=== PATIENT | female | born 1995 | race Two or more races ===

== ENCOUNTER 2022-06-20 14:05 | Emergency (ER) | payer BC ==
[2022-06-20] MEDS ORDERED: ONDANSETRON 4 MG/2 ML VIAL IVP STA (15:14)
[2022-06-20] MEDS ORDERED: SODIUM CHLORIDE 0.9% 1,000 ML IV STA (15:14)
[2022-06-20] MEDS ORDERED: PANTOPRAZOLE 40 MG/10 ML VIAL IVP STA (15:14)
[2022-06-20] MEDS ORDERED: MORPHINE SULFATE 4 MG/ML SYRINGE IV STA (15:14)
[2022-06-20 15:52] LABS: Basophils # (A) 0.1 k/uL (0-0.2); Basophils % (A) 1 %; Eosinophils # (A) 0.3 k/uL (0-0.7); Eosinophils % (A) 4 %; HGB 15.3 gm/dL (11.4-16.0); Lymphocytes # (A) 2.6 k/uL (1.0-4.8); Lymphocytes % (A) 27 %; MCH 33.9 pg (25.0-35.0); MCV 99.8 fL (80.0-100.0); Mean Platelet Volume 8.7; Monocytes # (A) 0.3 k/uL (0-1.0); Monocytes % (A) 3 %; Neutrophils # (A) 6.2 k/uL (1.3-7.7); Neutrophils % (A) 65 %; Platelet Count 281 k/uL (150-450); RBC 4.51 m/uL (3.80-5.40); RDW 11.7 % (11.5-15.5); WBC 9.6 k/uL (3.8-10.6)
[2022-06-20 16:03] LABS: ALT 15 U/L (4-34); AST 26 U/L (14-36); African American GFR (CKD) >90 (>60 ml/min/1.73 sqM); Albumin 4.5 g/dL (3.5-5.0); Alkaline Phosphatase 74 U/L (38-126); Amylase 52 U/L (30-110); Anion Gap 6 mmol/L; Blood Urea Nitrogen 12 mg/dL (7-17); Calcium 9.3 mg/dL (8.4-10.2); Carbon Dioxide 23 mmol/L (22-30); Chloride 108 mmol/L (98-107); Glucose 78 mg/dL (74-99); Lipase 32 U/L (23-300); Non-African American GFR(CKD) >90 (>60 ml/min/1.73 sqM); Potassium 4.4 mmol/L (3.5-5.1); Sodium 137 mmol/L (137-145); Total Bilirubin 1.4 mg/dL (0.2-1.3); Total Protein 7.4 g/dL (6.3-8.2)
--- NOTE | 2022-06-20 16:03 | ED ---
General Adult HPI - General Chief complaint: Abdominal Pain Stated complaint: ABD Pain Time Seen by Provider: 06/20/22 15:10 Source: patient, RN notes reviewed, old records reviewed Mode of arrival: ambulatory Limitations: no limitations - History of Present Illness Initial comments: Patient is a 27-year-old female with no smoking past medical history presents emergency department complaining of vomiting since yesterday as well as acute on chronic right-sided abdominal pain. Patient states she has had multiple episodes of nonbilious nonbloody emesis yesterday and this morning may become bilious. No diarrhea. No constipation. No hematemesis. No chest pain or shortness of breath. Does endorse some chronic right upper flank pain, which she attributes to a possible mass located over the right side of her abdominal wall. This is been there for quite some time and intermittently is painful. This is more painful when she has episodes of emesis. Denies any vaginal discharge, bleeding, . Denies dysuria, hematuria. Denies diarrhea. Denies fevers or sick contacts. His no other acute complaints at this time. Is uncertain was causing her abdominal pain, nausea, vomiting. Presents for further evaluation at this time. - Related Data Previous Rx's Medication Instructions Recorded Famotidine 20 mg PO DAILY 7 Days #7 tab 06/20/22 Mag Hydrox/Al Hydrox/Simeth 30 ml PO BID PRN #500 ml 06/20/22 [Maalox] Ondansetron Odt [Zofran Odt] 4 mg PO Q8HR PRN 2 Days #6 tab 06/20/22 Allergies Allergy/AdvReac Type Severity Reaction Status Date / Time No Known Allergies Allergy Verified 06/20/22 17:33 Review of Systems ROS Statement: Those systems with pertinent positive or pertinent negative responses have been documented in the HPI. Review of Systems: CONST: Denies fever EYES: Denies blurry vision ENT: Denies nasal congestion C/V: Denies Chest pain RESP: Denies shortness of breath GI: Endorses abdominal pain, nausea : Denies dysuria SKIN: Denies rash. MSK: Denies joint pain. NEURO: Denies headache ROS Other: All systems not noted in ROS Statement are negative. Past Medical History Past Medical History: No Reported History History of Any Multi-Drug Resistant Organisms: None Reported Past Surgical History: No Surgical Hx Reported Past Psychological History: No Psychological Hx Reported Smoking Status: Current every day smoker Past Alcohol Use History: None Reported Past Drug Use History: Marijuana General Exam - General Exam Comments Initial Comments: General: Appears in no acute distress. HEAD: Normal with no signs of head trauma. EYES: PERRLA, EOMI, conjunctiva normal, no discharge. ENT: Hearing grossly intact, normal oropharynx. RESPIRATORY: Clear breath sounds bilaterally. No wheezes, rales, or rhonchi. C/V: Regular rate and rhythm. S1 and S2 auscultated, no edema, peripheral pulses 2+ and intact throughout ABD: Abdomen is soft, nondistended. Mild tenderness to palpation over the right upper flank at the site of the "mass". Does feel like a possible fatty tissue build up. Appears to be in the abdominal/chest wall. No guarding. No peritoneal signs. No rebound tenderness. EXT: Normal range of motion, no obvious deformity SKIN: No rashes or lesions observed on exposed skin. NEURO: Alert and oriented 4. Limitations: no limitations Course Vital Signs 06/20/22 06/20/22 06/20/22 14:11 17:50 18:14 Temperature 98.7 F 97.9 F Pulse Rate 74 64 64 Respiratory 15 18 18 Rate Blood Pressure 95/58 102/69 106/72 O2 Sat by Pulse 96 99 99 Oximetry Medical Decision Making - Medical Decision Making Based on the patient's presentation and physical exam, I'm concerned for possible internal pathology for current symptoms. Did recommend to obtain abdominal laboratory studies, urine studies as well as abdominal x-ray as well as an ultrasound of the renals and bladder as well as the abdominal/chest wall to evaluate this "mass." Patient was in agreement with this plan. She'll be symptomatically treated with IV medications and fluids. Patient's laboratory studies are remarkable for cloudy urine but no signs of acute infection. Covid is negative. Lactic acid is within normal limits. is negative. Remainder the labs are unremarkable. Abdominal x-ray shows no acute intra-abdominal process. Renal ultrasound shows no signs of hydronephrosis. No evidence of obstructive uropathy. Abdominal ultrasound of the patient's [facility] shows a lipoma located over the right sided upper abdominal wall. I discussed results of the patient. 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 Rest of her workup is unremarkable. She is feeling improved. I did discuss with her negative workup and I believe it is safer to be discharged, this time as she is feeling improved. I will provide her with home medications to help with nausea and vomiting. She was in agreement this plan. Strict return precautions were discussed. I will provide the patient with a prescription for Zofran, famotidine, Maalox. I instructed the patient to follow up with their PCP in the next 1-3 days. I explained that the patient should return to the emergency department if they experience any worsening symptoms. Strict return precautions were discussed with the patient. The patient expressed understanding of these instructions. I answe red all questions that the patient had. The patient was discharged home in good condition with their prescriptions and follow up information. - Lab Data Result diagrams: 06/20/22 15:29 06/20/22 15:29 Lab Results 06/20/22 06/20/22 06/20/22 Range/Units 15:29 15:29 15:29 WBC 9.6 (3.8-10.6) k/uL RBC 4.51 (3.80-5.40) m/uL Hgb 15.3 (11.4-16.0) gm/dL Hct 45.0 (34.0-46.0) % MCV 99.8 (80.0-100.0) fL MCH 33.9 (25.0-35.0) pg MCHC 34.0 (31.0-37.0) g/dL RDW 11.7 (11.5-15.5) % Plt Count 281 (150-450) k/uL MPV 8.7 Neutrophils % 65 % Lymphocytes % 27 % Monocytes % 3 % Eosinophils % 4 % Basophils % 1 % Neutrophils # 6.2 (1.3-7.7) k/uL Lymphocytes # 2.6 (1.0-4.8) k/uL Monocytes # 0.3 (0-1.0) k/uL Eosinophils # 0.3 (0-0.7) k/uL Basophils # 0.1 (0-0.2) k/uL PT (9.0-12.0) sec INR (<1.2) APTT (22.0-30.0) sec Sodium 137 (137-145) mmol/L Potassium 4.4 (3.5-5.1) mmol/L Chloride 108 H (98-107) mmol/L Carbon Dioxide 23 (22-30) mmol/L Anion Gap 6 mmol/L BUN 12 (7-17) mg/dL Creatinine 0.68 (0.52-1.04) mg/dL Est GFR (CKD-EPI)AfAm >90 (>60 ml/min/1.73 sqM) Est GFR (CKD-EPI)NonAf >90 (>60 ml/min/1.73 sqM) Glucose 78 (74-99) mg/dL Plasma Lactic Acid Mynor (0.7-2.0) mmol/L Calcium 9.3 (8.4-10.2) mg/dL Total Bilirubin 1.4 H (0.2-1.3) mg/dL AST 26 (14-36) U/L ALT 15 (4-34) U/L Alkaline Phosphatase 74 (38-126) U/L Total Protein 7.4 (6.3-8.2) g/dL Albumin 4.5 (3.5-5.0) g/dL Amylase 52 (30-110) U/L Lipase 32 (23-300) U/L HCG, Qual Not Detected Urine Color Yellow Urine Appearance Cloudy H (Clear) Urine pH 8.0 (5.0-8.0) Ur Specific [place] 1.025 (1.001-1.035) Urine Protein Trace H (Negative) Urine Glucose (UA) Negative (Negative) Urine Ketones 1+ H (Negative) Urine Blood Negative (Negative) Urine Nitrite Negative (Negative) Urine Bilirubin Negative (Negative) Urine Urobilinogen 3.0 (<2.0) mg/dL Ur Leukocyte Esterase Negative (Negative) Urine RBC 1 (0-5) /hpf Urine WBC <1 (0-5) /hpf Ur Squamous Epith Cells 4 (0-4) /hpf Amorphous Sediment Rare H (None) /hpf Urine Mucus Occasional H (None) /hpf Coronavirus (PCR) (Not Detectd) 06/20/22 06/20/22 06/20/22 Range/Units 15:29 15:29 15:29 WBC (3.8-10.6) k/uL RBC (3.80-5.40) m/uL Hgb (11.4-16.0) gm/dL Hct (34.0-46.0) % MCV (80.0-100.0) fL MCH (25.0-35.0) pg MCHC (31.0-37.0) g/dL RDW (11.5-15.5) % Plt Count (150-450) k/uL MPV Neutrophils % % Lymphocytes % % Monocytes % % Eosinophils % % Basophils % % Neutrophils # (1.3-7.7) k/uL Lymphocytes # (1.0-4.8) k/uL Monocytes # (0-1.0) k/uL Eosinophils # (0-0.7) k/uL Basophils # (0-0.2) k/uL PT 11.3 (9.0-12.0) sec INR 1.0 (<1.2) APTT 26.1 (22.0-30.0) sec Sodium (137-145) mmol/L Potassium (3.5-5.1) mmol/L Chloride (98-107) mmol/L Carbon Dioxide (22-30) mmol/L Anion Gap mmol/L BUN (7-17) mg/dL Creatinine (0.52-1.04) mg/dL Est GFR (CKD-EPI)AfAm (>60 ml/min/1.73 sqM) Est GFR (CKD-EPI)NonAf (>60 ml/min/1.73 sqM) Glucose (74-99) mg/dL Plasma Lactic Acid Mynor 0.9 (0.7-2.0) mmol/L Calcium (8.4-10.2) mg/dL Total Bilirubin (0.2-1.3) mg/dL AST (14-36) U/L ALT (4-34) U/L Alkaline Phosphatase (38-126) U/L Total Protein (6.3-8.2) g/dL Albumin (3.5-5.0) g/dL Amylase (30-110) U/L Lipase (23-300) U/L HCG, Qual Urine Color Urine Appearance (Clear) Urine pH (5.0-8.0) Ur Specific [place] (1.001-1.035) Urine Protein (Negative) Urine Glucose (UA) (Negative) Urine Ketones (Negative) Urine Blood (Negative) Urine Nitrite (Negative) Urine Bilirubin (Negative) Urine Urobilinogen (<2.0) mg/dL Ur Leukocyte Esterase (Negative) Urine RBC (0-5) /hpf Urine WBC (0-5) /hpf Ur Squamous Epith Cells (0-4) /hpf Amorphous Sediment (None) /hpf Urine Mucus (None) /hpf Coronavirus (PCR) Not Detected (Not Detectd) Disposition Clinical Impression: Abdominal pain of unknown etiology, Lipoma, Nausea and vomiting Disposition: HOME SELF-CARE Condition: Good Instructions (If sedation given, give patient instructions): Abdominal Pain (ED) Additional Instructions: Return if worsening symptoms. Follow up with your PCP. Prescriptions: Famotidine 20 mg PO DAILY 7 Days #7 tab Mag Hydrox/Al Hydrox/Simeth [Maalox] 30 ml PO BID PRN #500 ml PRN Reason: Dyspepsia Ondansetron Odt [Zofran Odt] 4 mg PO Q8HR PRN 2 Days #6 tab PRN Reason: Nausea Is patient prescribed a controlled substance at d/c from ED?: No Referrals: None,Stated [Primary Care Provider] - 1-2 days Luis E Marti [STAFF PHYSICIAN] - 1-2 days Kellie Hurtado MD [REFERRING] - 1-2 days Time of Disposition: 17:45
[2022-06-20 16:13] LABS: Partial Thromboplastin Time 26.1 sec (22.0-30.0); Prothrombin Time 11.3 sec (9.0-12.0)
[2022-06-20 16:25] LABS: HCG,Qualitative Serum Not Detected
--- NOTE | 2022-06-20 16:31 | XR ---
EXAMINATION TYPE: XR abdomen 1V DATE OF EXAM: 06/20/2022 4:22 PM INDICATION: Patient age:Female; 27 years old; Reason for study: nausea and vomiting; COMPARISON: None. TECHNIQUE: One radiographic view of the abdomen was obtained. FINDINGS: The bowel gas pattern is nonspecific without dilated loops of small or large bowel. There i s no evidence for organomegaly or pneumoperitoneum. The osseous structures are intact. No abnormal calcifications are present. Fecal material and gas are demonstrated throughout the colon and rectum. IMPRESSION: Nonspecific bowel gas pattern without radiographic evidence for acute process.
[2022-06-20 16:36] LABS: Amorphous Sediment,Urine Rare /hpf; Appearance,Urine Cloudy (Clear); Bilirubin,Urine Negative (Negative); Blood,Urine Negative (Negative); Color,Urine Yellow; Glucose,Urine (UA) Negative (Negative); Ketones,Urine 1+ (Negative); Leukocyte Esterase,Urine Negative (Negative); Mucus,Urine Occasional /hpf; Nitrite,Urine Negative (Negative); Protein,Urine Trace (Negative); RBC,Urine 1 /hpf (0-5); Specific Gravity,Urine 1.025 (1.001-1.035); Squamous Epithelial Cell,Urine 4 /hpf (0-4); WBC,Urine <1 /hpf (0-5)
--- NOTE | 2022-06-20 17:32 | US ---
EXAMINATION TYPE: US renals and bladder DATE OF EXAM: 06/20/2022 COMPARISON: NONE CLINICAL HISTORY: flank pain, eval for hydro. bilat flank pain EXAM MEASUREMENTS: Right Kidney: 9.3 x 4.3 x 4.8 cm Left Kidney: 9.8 x 4.2 x 5.0 cm Right Kidney: No hydronephrosis or masses seen Left Kidney: No hydronephrosis or masses seen Bladder: wnl There is no evidence for hydronephrosis at this point in time. No nephrolithiasis is seen. No clarice s are identified. The urinary bladder is anechoic. Bilateral ureteral jets are seen. IMPRESSION: No evidence for obstructive uropathy
--- NOTE | 2022-06-20 17:33 | US ---
EXAMINATION TYPE: US abdomen limited DATE OF EXAM: 06/20/2022 COMPARISON: NONE CLINICAL HISTORY: possible soft tissue mass over right upper flank. Soft tissue palp for 10 years 2.7 x 1.1 x 1.9cm isoechoic area no evidence of organizing fluid collection. IMPRESSION: Subcutaneous lesion most consistent with lipoma.
[2022-06-20] MEDS ORDERED: MAG HYDROX/AL HYDROX/SIMETH 30 ML, HYOSCYAMINE ELIXIR 10 ML, LIDOCAINE VISCOUS 2% 10 ML PO STA ×3 (17:52)
[2022-06-20] MEDS ORDERED: MORPHINE SULFATE 4 MG/ML SYRINGE IVP STA (17:52)
[2022-06-20 18:01] VITALS: PULSE 64; RESP 18
[2022-06-20 18:17] VITALS: BP 106/72; TEMP 97.9
== END 2022-06-20 18:20 | disposition home or self-care (01) ==
LOC: EC 14:05
DX: R10.9 Unspecified abdominal pain (principal); D17.9 Benign lipomatous neoplasm, unspecified; F17.200 Nicotine dependence, unspecified, uncomplicated; F12.90 Cannabis use, unspecified, uncomplicated; Z20.822 Contact with and (suspected) exposure to COVID-19
CPT/HCPCS: 36415; 80053; 82150; 83605; 83690; 85025; 85610; 85730; 81001; 84703; 87635; 74018; 76705; 76770; 99284; 96374; 96375 ×2; 96376; 96361; J2270; J2405; C9113